=== PATIENT | female | born 1975 | race Caucasian/White ===

== ENCOUNTER 2019-04-28 23:32 | Emergency (ER) | payer OTHER, SELFPAY ==
[2019-04-28 23:40] VITALS: BP 186/108; PULSE 87; RESP 18; TEMP 36; O2SAT 100
--- NOTE | 2019-04-29 01:09 | ED.RECABL ---
HPI - Recheck/Abnormal Lab/Rx General Chief Complaint: Recheck/Abnormal Lab/Rx Stated Complaint: High Blood Pressure Time Seen by Provider: 04/29/19 00:54 Source: patient and RN notes reviewed Mode of arrival: other Limitations: no limitations History of Present Illness HPI narrative: Pt is a 44 y/o female who presents to the ED with c/o hypertension that she could not lower yesterday (04/28/19). She notes that she went to her PCP's office and her blood pressure was elevated. Pt has a hx of HTN and she notes that she took her medication yesterday. Pt denies any recent changes to her medication. Pt also reports ROMO, otalgia, palpitations, and nausea, but denies CP. MD complaint: other (hypertension) Initial visit (ago): hour(s) Returns today for: persistent/worsening pain related to initial visit Symptoms since prior visit: no new symptoms Associated symptoms: nausea and other (ROMO, otalgia, palpitations) Related Data Allergies Allergy/AdvReac Type Severity Reaction Status Date / Time No Known Drug Allergies Allergy Unknown Verified 06/04/18 12:36 eggplant Allergy Severe tongue Uncoded 01/27/07 08:25 swells and throat Review of Systems Review of Systems: All systems reviewed & are unremarkable except as noted in HPI and below ENT: Reports otalgia Cardiovascular: Cardiovascular: Denies chest pain and Reports other (palpitations) Gastrointestinal: Gastrointestinal: Reports nausea Neurologic: Reports headache(s) PMFSH Past Medical History Medical History (Updated 04/29/19 @ 03:31 by Umer Aggarwal MD) Anxiety Arthritis Depression HTN (hypertension) UTI (urinary tract infection) Surgical History Surgical History (Updated 04/29/19 @ 01:33 by Andra Barroso) H/O dilation and curettage H/O LEEP H/O spinal fusion Hx of section Hx of tonsillectomy Social History Social History (Updated 04/29/19 @ 02:15 by Andra Barroso) Smoking status: Unknown if ever smoked Exam Const: General: healthy appearing and no acute distress Nutritional Appearance: well nourished HENMT: Mouth: Yes lip normal and Yes moist mucous membranes Eyes: Conjunctivae: conjunctivae normal Pupils: Equal, round and reactive pupils present Resp: Effort & Inspection: normal respiratory effort Auscultation: clear to auscultation bilaterally Cardio: Rate: regular rate Rhythm: regular rhythm Back/Spine/Pelvis: Back: other (Full ROM) Skin: General skin exam: normal color, dry skin and other (warm) Neuro: General: patient oriented x3 and other (alert) Speech: normal speech Extrem: General: full ROM Course Vital Signs Vital signs: Vital Signs Temperature 36.0 C L 04/28/19 23:40 Pulse Rate 87 04/28/19 23:40 Respiratory Rate 18 04/28/19 23:40 Blood Pressure 186/108 H 04/28/19 23:40 Pulse Oximetry 100 04/28/19 23:40 Temperature 36.8 C 04/29/19 03:00 Pulse Rate 95 04/29/19 03:45 Respiratory Rate 20 04/29/19 03:45 Blood Pressure 147/93 H 04/29/19 03:45 Pulse Oximetry 99 04/29/19 03:45 MDM - Recheck/Abnormal Lab/Rx MDM Narrative Medical decision making narrative: ROMO improved with treatment. BP improving. Will increase her dose of atenolol and have her follow-up as previously planned. Medical Records Attestation: I reviewed the patient's medical records. Discharge Plan Discharge Clinical Impression: Hypertension Qualifiers: Hypertension type: unspecified Qualified Code(s): I10 - Essential (primary) hypertension Headache Qualifiers: Headache type: unspecified Headache chronicity pattern: acute headache Intractability: not intractable Qualified Code(s): R51 - Headache Patient Disposition: Home, Self-Care Condition: Stable Instructions: Chronic Hypertension (ED) Additional Instructions: Increase Atenolol to 100 mg daily. Keep follow-up appointment for blood pressure check and further dosing instructions. Prescriptions: New atenolol 50 mg tablet
[2019-04-29 01:18] VITALS: BP 189/111; PULSE 80; RESP 12; TEMP 36.4; O2SAT 100
[2019-04-29] MEDS: hydrALAZINE HCL 20 MG/ML VIAL IM (01:29)
[2019-04-29] MEDS: KETOROLAC 30 MG/ML VIAL (*BKC) IV PUSH (02:33)
[2019-04-29] MEDS: METOCLOPRAMIDE HCL INJ 10 MG/2 ML VIAL IV PUSH (02:34)
[2019-04-29 03:00] VITALS: BP 141/92; PULSE 99; RESP 12; TEMP 36.8; O2SAT 100
[2019-04-29 03:45] VITALS: BP 147/93; PULSE 95; RESP 20; O2SAT 99
== END 2019-04-29 03:45 | disposition home or self-care (01) ==
PROVIDERS: Emergency Provider Emergency Medicine; PCP Physician Assistant
DX: I10 Essential (primary) hypertension (principal); R51 Headache; Z87.440 Personal history of urinary (tract) infections; Z98.1 Arthrodesis status
CPT/HCPCS: 96374; 96375; 99284; J0131; J0360; J1200; J1885; J2765

== ENCOUNTER 2023-05-06 17:08 | Outpatient (CLI) | payer OTHER, SELFPAY ==
--- NOTE | ~2023-05-06 | MR_ITS ---
EXAMINATION: MR shoulder LT wo con DATE: 05/06/2023 18:01 INDICATION: Traumatic complete tear of left rotator cuff. Left shoulder pain. TECHNIQUE: Magnetic resonance imaging (MRI) of the left shoulder was performed without intravenous co ntrast. Sequences included axial PD-weighted FS FSE, coronal oblique PD-weighted FS FSE and T2-weight ed FS FSE, and sagittal oblique T2-weighted FS FSE and T1-weighted FSE. COMPARISON: None. FINDINGS: Coracoacromial arch: The acromion undersurface is curved in morphology (type II). There is mild acromioclavicular joint os teoarthritis. There is moderate subacromial/subdeltoid bursitis. Rotator cuff: There is severe supraspinatus and infraspinatus tendinopathy. There is a near full-thickness tear of the junction of supraspinatus and infraspinatus tendons measuring 12 mm anterior to posterior by 13 m m proximal to distal. Teres minor tendon is normal. There is mild subscapularis tendinopathy. There i s no asymmetric fatty atrophy of the rotator cuff muscle bellies. Biceps tendon and glenoid labrum: Biceps tendon is in bicipital groove. Intra-articular biceps tendon is normal. The glenoid labrum is normal. Fluid: There is a moderate-sized glenohumeral joint effusion. Bones/cartilage: Humeral head cartilage is normal. Glenoid cartilage is normal. IMPRESSION: 1. Severe rotator cuff tendinopathy with [id number] tear of supraspinatus and infraspinatus tendons. 2. Moderate-sized glenohumeral joint effusion. 3. Moderate subacromial/subdeltoid bursitis. 4. Mild acromioclavicular joint osteoarthritis. Reviewed, dictated and finalized at location E. [employer] IMPRESSION: 1. Severe rotator cuff tendinopathy with [id number] tear of supraspina tus and infraspinatus tendons. 2. Moderate-sized glenohumeral joint effusion. 3. Moderate subacromial/subdeltoid bursitis. 4. Mild acromioclavicular joint osteoarthritis.
== END 2023-05-06 17:09 | disposition home or self-care (01) ==
LOC: ANHIMG 17:10
PROVIDERS: PCP Physician Assistant; Visit Provider Family Medicine Sports Medicine
DX: S46.012D Strain of muscle(s) and tendon(s) of the rotator cuff of left shoulder, subsequent encounter (principal); M25.412 Effusion, left shoulder; M75.52 Bursitis of left shoulder; M19.012 Primary osteoarthritis, left shoulder
CPT/HCPCS: 73221